=== PATIENT | male | born 1930 | race Two or more races ===

== ENCOUNTER → 2019-09-10 | Outpatient (CLI) | payer MEDICARE, MEDICAID ==
--- NOTE | 2019-09-10 14:50 | RAD ---
CT CHEST WO CONTRAST Indication: Lung nodule. Next field Exposure: One or more of the following individualized dose reduction techniques were utilized for this examination: 1. Automated exposure control 2. Adjustment of the mA and/or kV according to patient size 3. Use of iterative reconstruction technique. Technique: Standard imaging without intravenous contrast. Comparison: CT chest 03/26/2019 FINDINGS: Limited vascular exam due to lack of contrast. No evidence of gross aortic aneurysm. Aorta is mildly calcified. Visualized thyroid appears unremarkable. No evidence of pathologic lymph node enlargement within the constraints of a noncontrast study. No evidence of pericardial effusion or pleural effusion. Coronary arteries are calcified. Emphysema identified in both lungs. Somewhat irregular nodular density in the left lung apex is again identified, and appears similar to the previous exam without progression. Calcified nodule in the left lower lobe is stable. Small flat nodule in the left upper lobe, series 3, image 115, is unchanged. Measures 6 mm in long axis. No evidence of acute consolidating infiltrate. Trachea and mainstem bronchi are grossly patent. Degenerative spondylosis. Vertebral body height and alignment are stable. Scans through the upper abdomen are limited by technique. Small low-density lesion in the left kidney is unchanged, measures 17 Hounsfield units, most likely a cyst. Calcification along the lateral spleen is redemonstrated. IMPRESSION: 1. Nodular opacity in the left lung apex is unchanged. 2. Small flat left upper lobe nodule is unchanged. 3.. Could obtain follow-up CT chest in 12 months or further evaluation, as indicated. Electronically signed by: Jaspreet Moore MD (09/10/2019 2:47 PM) [id number]
== END ==
LOC: CT 09:42
PROVIDERS: ATTEND Internal Medicine Pulmonary Disease
DX: J43.8 Other emphysema (principal); I70.0 Atherosclerosis of aorta; I25.10 Atherosclerotic heart disease of native coronary artery without angina pectoris; R91.1 Solitary pulmonary nodule; D73.89 Other diseases of spleen; J98.4 Other disorders of lung; M47.819 Spondylosis without myelopathy or radiculopathy, site unspecified
CPT/HCPCS: 71250